=== PATIENT | female | born 1955 | race Caucasian/White ===

== ENCOUNTER 2021-05-29 09:23 | Emergency (ER) | payer MEDICARE, OTHER ==
--- NOTE | 2021-05-29 10:48 | EDM.PDOC ---
ED HPI GENERAL MEDICAL PROBLEM - General Chief Complaint: ENT Problem Stated Complaint: DENTAL COMPLAINT Time Seen by Provider: 05/29/21 10:42 - History of Present Illness INITIAL COMMENTS - FREE TEXT/NARRATIVE: 66-year-old female presents to the emergency room with dental pain. This pain started about 3 to 4 days ago. This involves a tooth on the right lower gum. She will not be able to get into see her dentist for several weeks. Patient denies any fevers or chills denies any other complaints at this time. The patient has had her first Covid vaccine and is scheduled for her second at the end of the month. 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: Psychiatric History: Reports: ADD, Anxiety, Bipolar, Depression - Past Surgical History HEENT Surgical History: Reports: Oral Surgery, Tonsillectomy Social & Family History - Tobacco Use Tobacco Use Status *Q: Former Tobacco User Used Tobacco, but Quit: Yes Month/Year Tobacco Last Used: 12/07 - Caffeine Use Caffeine Use: Reports: Coffee - Recreational Drug Use Recreational Drug Use: No ED ROS GENERAL - Review of Systems Review Of Systems: See Below Constitutional: Reports: No Symptoms HEENT: Reports: Dental Pain Respiratory: Reports: No Symptoms, Other (Recently quit smoking) Cardiovascular: Reports: No Symptoms GI/Abdominal: Reports: No Symptoms ED EXAM, GENERAL - Physical Exam Exam: See Below Exam Limited By: No Limitations General Appearance: Alert, No Apparent Distress Eye Exam: Bilateral Eye: Normal Inspection Ears: Normal External Exam, Normal Canal, Hearing Grossly Normal, Normal TMs Nose: Normal Inspection, Normal Mucosa, No Blood Throat/Mouth: Other (Right lower molar second from the rear has some decay with some gum erythema no drainage) Head: Atraumatic, Normocephalic Neck: Normal Inspection, Supple, Non-Tender, Full Range of Motion. No: Lymphadenopathy (L), Lymphadenopathy (R) Respiratory/Chest: No Respiratory Distress, Lungs Clear, Normal Breath Sounds Cardiovascular: Regular Rate, Rhythm, No Edema, No Murmur Course - Vital Signs Last Recorded V/S: Last Vital Signs Temp 36.6 C 05/29/21 09:42 Pulse 71 05/29/21 09:42 Resp 16 05/29/21 09:42 BP 137/66 05/29/21 09:42 Pulse Ox 98 05/29/21 09:42 Departure - Departure Time of Disposition: 10:57 Disposition: Home, Self-Care 01 Clinical Impression: Pain due to dental caries - Discharge Information Referrals: PCP,None [Primary Care Provider] - Forms: ED Department Discharge Additional Instructions: Return to the emergency room with any questions problems or worsening symptoms. You have been started on an antibiotic take as directed. Has been sent electronically to [facility] by [facility] Follow-up with your dentist as soon as you can. Tylenol Motrin as needed for discomfort. Sepsis Event Note (ED) - Evaluation Sepsis Screening Result: No Definite Risk - Focused Exam Vital Signs: Vital Signs Temp Pulse Resp BP Pulse Ox 05/29/21 09:42 36.6 C 71 16 137/66 98
== END 2021-05-29 11:15 | disposition home or self-care (01) ==
LOC: JD.ED 09:23
DX: K02.9 Dental caries, unspecified (principal); Z87.891 Personal history of nicotine dependence
CPT/HCPCS: 99282; 99283

== ENCOUNTER 2022-03-22 08:35 | Emergency (ER) | payer MEDICARE, OTHER | END 2022-03-22 11:05 | disposition home or self-care (01) | LOC: JD.ED 08:35 | DX: S92.321A Displaced fracture of second metatarsal bone, right foot, initial encounter for closed fracture (principal); K21.9 Gastro-esophageal reflux disease without esophagitis; Z87.891 Personal history of nicotine dependence; Z79.899 Other long term (current) drug therapy; W18.09XA Striking against other object with subsequent fall, initial encounter | CPT/HCPCS: 73630-26-RT; 73630-RT; 99282; 99283 ==

== ENCOUNTER 2025-03-07 13:47 | Day surgery (SDC) | payer MEDICARE, OTHER ==
[2025-03-07] MEDS: Polymyxin B/Trimethoprim 10 ML Bottle EYERT SCH (14:17)
[2025-03-07] MEDS: Brimonidine 0.2% Ophth Soln 5 ML Bottle EYERT SCH (14:25)
[2025-03-07] MEDS: Phenylephrine 2.5% Ophth Soln 2 ML Bot EYERT SCH (14:34)
[2025-03-07] MEDS: Tropicamide 1% Ophth Soln 3 ML Bottle EYERT SCH (14:41)
[2025-03-07] MEDS: Tetracaine HCl/PF 0.5% 4 ML Bottle EYEBOTH SCH (15:30)
[2025-03-07] MEDS: Lidocaine 1% PF 2 ML SDV INJECT SCH (16:01)
[2025-03-07] MEDS: Cefuroxime 10 MG/ML SYRINGE EYERT SCH (16:12)
[2025-03-07] MEDS: Pilocarpine 4% Ophth Soln 15 ML Bot EYERT SCH (16:13)
== END 2025-03-07 16:21 ==
LOC: JD.SDS 13:47
PROVIDERS: ATTEND Ophthalmology
DX: H25.813 Combined forms of age-related cataract, bilateral (principal); K21.9 Gastro-esophageal reflux disease without esophagitis; F31.9 Bipolar disorder, unspecified; Z79.899 Other long term (current) drug therapy
CPT/HCPCS: 66984; A9270; J3490

== ENCOUNTER 2025-04-11 12:36 | Day surgery (SDC) | payer MEDICARE ==
[2025-04-11] MEDS: Tetracaine HCl/PF 0.5% 4 ML Bottle EYEBOTH SCH (07:20)
[2025-04-11] MEDS: Lidocaine 1% PF 2 ML SDV INJECT SCH (07:20)
[2025-04-11] MEDS: Polymyxin B/Trimethoprim 10 ML Bottle EYELF SCH (07:21)
[2025-04-11] MEDS: Pilocarpine 4% Ophth Soln 15 ML Bot EYELF SCH (07:21)
[2025-04-11] MEDS: Cefuroxime 10 MG/ML SYRINGE EYELF SCH (07:21)
[2025-04-11] MEDS: Tropicamide 1% Ophth Soln 3 ML Bottle EYELF SCH (13:47)
== END 2025-04-11 15:31 | disposition home or self-care (01) ==
LOC: JD.SDS 12:36
PROVIDERS: ATTEND Ophthalmology
DX: H25.812 Combined forms of age-related cataract, left eye (principal); Z96.1 Presence of intraocular lens; Z79.899 Other long term (current) drug therapy
CPT/HCPCS: 66984; A9270; J0697; J3490

== ENCOUNTER 2025-06-03 10:28 | Emergency (ER) | payer MEDICARE | END 2025-06-03 12:35 | disposition home or self-care (01) | LOC: JD.ED 10:28 | DX: S01.81XA Laceration without foreign body of other part of head, initial encounter (principal); W18.41XA Slipping, tripping and stumbling without falling due to stepping on object, initial encounter; K21.9 Gastro-esophageal reflux disease without esophagitis; Z79.899 Other long term (current) drug therapy | CPT/HCPCS: 12013; 70450; 99283; J2003 ==